=== PATIENT | female | born 1975 | race Caucasian/White ===

== ENCOUNTER 2017-09-25 08:59 | Outpatient (CLI) | payer OTHER ==
--- NOTE | 2017-09-27 13:06 | MMO ---
BILATERAL SCREENING MAMMOGRAM: INDICATION: Annual exam. COMPARISON: Prior exams dated 06/28/16, 06/04/15. FINDINGS: The interpretation of this exam was assisted with computer-aided detection. The breast parenchyma is heterogeneously dense, which limits the sensitivity of mammography. There are new focal asymmetries seen within the left breast. One is seen within the CC projection al lilly the inner aspect of the left breast, anterior to mid depth. Two are seen on the left MLO project ion and the upper and lower portions of the left breast. There are benign-appearing calcifications within both breasts. IMPRESSION: BI-RADS category 0 -incomplete evaluation - need for additional imaging. Recommend spot magnification compression views of the focal asymmetries within the left breast on the CC and MLO projections. Ultrasound may be necessary for further evaluation. BIRADS 0: Incomplete: Need Additional Imaging Evaluation and/or Prior Mammograms for Comparison POS: ANDRE[facility]
== END 2017-09-25 09:00 | disposition home or self-care (01) ==
LOC: SCSMAMMO 08:59
PROVIDERS: ATTEND Family Medicine
DX: Z12.31 Encounter for screening mammogram for malignant neoplasm of breast (principal); N64.89 Other specified disorders of breast
CPT/HCPCS: 77067

== ENCOUNTER 2017-10-02 12:41 | Outpatient (CLI) | payer OTHER | END 2017-10-02 12:42 | disposition home or self-care (01) | LOC: BICMAMMO 12:41 | PROVIDERS: ATTEND Family Medicine | DX: R92.2 Inconclusive mammogram (principal) | CPT/HCPCS: G0279 ==

== ENCOUNTER 2018-10-11 09:49 | Outpatient (CLI) | payer OTHER ==
--- NOTE | 2018-10-11 10:30 | MMO ---
Bilateral MAMMO Bilat Screen [facility]. CLINICAL HISTORY: Patient is 42 years old and is seen for screening. The patient has no family history of breast cancer. The patient has no personal history of cancer. VIEWS: The views performed were: bilateral craniocaudal with tomosynthesis and bilateral mediolateral oblique with tomosynthesis. FILMS COMPARED: The present examination has been compared to prior imaging studies performed at [facility] on 06/04/2015, 06/28/2016, 09/25/2017 and 10/02/2017. MAMMOGRAM FINDINGS: The breasts are heterogeneously dense, which could obscure a lesion on mammography. There are no suspicious masses, suspicious calcifications, or new areas of architectural distortion. IMPRESSION: THERE IS NO MAMMOGRAPHIC EVIDENCE OF MALIGNANCY. A ROUTINE FOLLOW-UP MAMMOGRAM IN 1 YEAR IS RECOMMENDED. THE RESULTS OF THIS EXAM WERE SENT TO THE PATIENT. ACR BI-RADS Category 1 - Negative MAMMOGRAPHY NOTE: 1. A negative mammogram report should not delay a biopsy if a dominant of clinically suspicious mass is present. 2. Approximately 10% to 15% of breast cancers are not detected by mammography. 3. Adenosis and dense breasts may obscure an underlying neoplasm.
== END 2018-10-11 09:50 | disposition home or self-care (01) ==
LOC: BICMAMMO 09:49
PROVIDERS: ATTEND Family Medicine
DX: Z12.31 Encounter for screening mammogram for malignant neoplasm of breast (principal)
CPT/HCPCS: 77063; 77067

== ENCOUNTER 2019-10-14 | Outpatient (CLI) | payer OTHER | END 2019-10-14 11:18 | disposition home or self-care (01) | DX: Z12.31 Encounter for screening mammogram for malignant neoplasm of breast (principal) ==

== ENCOUNTER 2020-10-15 08:30 | Outpatient (CLI) | payer OTHER | END 2020-10-15 08:31 | disposition home or self-care (01) | LOC: BICMAMMO 08:30 | PROVIDERS: ATTEND Family Medicine | DX: Z12.31 Encounter for screening mammogram for malignant neoplasm of breast (principal) | CPT/HCPCS: 77063; 77067 ==